=== PATIENT | female | born 1995 | race Caucasian/White ===

== ENCOUNTER 2020-05-19 01:50 | Emergency (ER) | payer OTHER ==
[~2020-05-19] VITALS: Ht 160 cm; Wt 111.1 kg
[2020-05-19 02:00] VITALS: BP 150/90
--- NOTE | 2020-05-19 02:03 | NUR ---
TO [facility] ambulatory
--- NOTE | 2020-05-19 02:05 | NUR ---
PATIENT PRESENTS TO ED WITH C/O SUPRAPUBIC PAIN X 8 DAYS . PT STATES BURNING UPON URINATION . DENIES N/V/D; SKIN IS PINK/WARM/DRY; AAOX4 WITH EVEN AND STEADY GAIT; LUNGS CLEAR BL; HR EVEN AND REGULAR;PATIENT STATES PAIN OF 8/10 AT THIS TIME; VSS; ER MADE AWARE OF PT STATUS.
[2020-05-19 02:47] LABS: APPEARANCE,URINE CLOUDY (CLEAR); BILIRUBIN,URINE NEGATIVE (NEGATIVE); BLOOD, URINE TRACE-I (NEGATIVE); COLOR,URINE YELLOW (YELLOW); LEUKOCYTE ESTERASE ,URINE 1+ (NEGATIVE); NITRITE, URINE NEGATIVE (NEGATIVE); PH,URINE 7.5 (5.0-9.0); UGLUCOSE NEGATIVE (NEGATIVE)
[2020-05-19 03:10] VITALS: BP 150/90
== END 2020-05-19 03:10 | disposition home or self-care (01) ==
LOC: MED 01:50
DX: N39.0 Urinary tract infection, site not specified (principal)
CPT/HCPCS: 81001; 87086; 99283

== ENCOUNTER 2020-06-10 20:39 | Emergency (ER) | payer OTHER ==
[~2020-06-10] VITALS: Ht 160 cm; Wt 108.9 kg
[2020-06-10 20:40] VITALS: BP 121/71
--- NOTE | 2020-06-10 20:43 | NUR ---
TO CHAIR AMBULATORY
--- NOTE | 2020-06-10 20:50 | NUR ---
SEEN AND EXAMINED BY ERMD WITH ORDER.
[2020-06-10 21:07] VITALS: BP 121/71
--- NOTE | 2020-06-10 21:07 | NUR ---
Patient discharged with v/s stable. Written and verbal after care instructions given and explained. Patient verbalized understanding. Ambulatory with steady gait. All questions addressed prior to discharge. Advised to follow up with PMD.
== END 2020-06-10 21:07 | disposition home or self-care (01) ==
LOC: MED 20:39
DX: S61.011A Laceration without foreign body of right thumb without damage to nail, initial encounter (principal); W45.8XXA Other foreign body or object entering through skin, initial encounter; Y93.89 Activity, other specified; Y92.89 Other specified places as the place of occurrence of the external cause; Y99.8 Other external cause status
CPT/HCPCS: 99282

== ENCOUNTER 2020-06-20 11:22 | Emergency (ER) | payer OTHER ==
[~2020-06-20] VITALS: Ht 160 cm; Wt 108.9 kg
[2020-06-20 11:29] VITALS: BP 130/76
--- NOTE | 2020-06-20 11:40 | NUR ---
C/O LOWER ABDOMINAL PAIN 12/16 X 1 WEEK. DARK URINE. LMP 04/28/20
[2020-06-20 14:33] LABS: APPEARANCE,URINE CLOUDY (CLEAR); BILIRUBIN,URINE 1+ (NEGATIVE); BLOOD, URINE NEGATIVE (NEGATIVE); COLOR,URINE BROWN (YELLOW); LEUKOCYTE ESTERASE ,URINE NEGATIVE (NEGATIVE); NITRITE, URINE POSITIVE (NEGATIVE); PH,URINE 6.5 (5.0-9.0); UGLUCOSE NEGATIVE (NEGATIVE)
--- NOTE | 2020-06-20 15:38 | NUR ---
CALLED OUT PATIENTS NAME IN LOBBY, NO RESPONSE AT THIS TIME
[2020-06-20 16:04] VITALS: BP 130/76
--- NOTE | 2020-06-20 16:04 | NUR ---
PATIENT ELOPED FROM FACILITY. DISCHARGE INSTRUCTIONS NOT GIVEN TO PATIENT. DR. GOVEA NOTIFIED.
--- NOTE | 2020-06-20 16:04 | NUR ---
CALLED OUT PATIENTS NAME IN LOBBY, NO RESPONSE AT THIS TIME
== END 2020-06-20 16:00 | disposition left against medical advice (07) ==
LOC: MED 11:22
DX: O26.891 Other specified pregnancy related conditions, first trimester (principal); O21.8 Other vomiting complicating pregnancy; R10.30 Lower abdominal pain, unspecified; F17.200 Nicotine dependence, unspecified, uncomplicated; Z3A.01 Less than 8 weeks gestation of pregnancy
CPT/HCPCS: 76801; 76817; 81003; 81025; 99285